=== PATIENT | female | born 1980 | race African-American/Black ===

== ENCOUNTER 2017-02-09 09:35 | Emergency (ER) | payer OTHER ==
[~2017-02-09] VITALS: Ht 165.1 cm; Wt 92.7 kg
[~2017-02-09 09:35] MED LIST: AMIT25TA9 PO; ERGO1TAB PO; HYDR-3965 PO
[2017-02-09] MEDS ORDERED: ONDANSETRON HCL 4 MG TABLET PO ONE (10:45)
[2017-02-09] MEDS ORDERED: HYDROCODONE/ACETAMINOPHEN 5-325 MG TABLET PO ONE (10:45)
[2017-02-09 12:05] VITALS: BP 129/79
== END 2017-02-09 12:12 | disposition home or self-care (01) ==
LOC: EMS 09:37
DX: M25.531 Pain in right wrist (principal); R03.0 Elevated blood-pressure reading, without diagnosis of hypertension; J06.9 Acute upper respiratory infection, unspecified
CPT/HCPCS: 29125; 73110; 99284; Q0162

== ENCOUNTER 2022-09-09 13:12 | Emergency (ER) | payer OTHER ==
[~2022-09-09] VITALS: Ht 160 cm; Wt 103.2 kg
[2022-09-09] MEDS ORDERED: METF-1211 PO (13:22)
[2022-09-09] MEDS ORDERED: CETI-193 PO (13:22)
[2022-09-09 13:30] LABS: COVID AG,FIA SOURCE NASAL SWAB
[2022-09-09 13:52] LABS: INFLUENZA TYPE A NEGATIVE FOR TYPE A (NEGATIVE); INFLUENZA TYPE B NEGATIVE FOR TYPE B (NEGATIVE)
[2022-09-09] MEDS ORDERED: DICL100G31 TP (14:26)
[2022-09-09] MEDS ORDERED: AMIT75TA2 PO (14:26)
[2022-09-09] MEDS ORDERED: NAPR-1025 PO (14:26)
[2022-09-09] MEDS ORDERED: ACETAMINOPHEN 500 MG TABLET PO ONE (14:30)
[2022-09-09] MEDS ORDERED: IBUPROFEN 600 MG TABLET PO ONE (14:30)
[2022-09-09] MEDS ORDERED: ACET-2080 PO (15:02)
[2022-09-09] MEDS ORDERED: IBUP-1554 PO (15:02)
[2022-09-09] MEDS ORDERED: AMOX1TAB16 PO (15:02)
[2022-09-09] MEDS ORDERED: ONDA-104 PO (15:02)
[2022-09-09 15:24] VITALS: BP 115/72
== END 2022-09-09 16:10 | disposition home or self-care (01) ==
LOC: EMS 13:15
DX: J32.9 Chronic sinusitis, unspecified (principal); R50.9 Fever, unspecified; F41.9 Anxiety disorder, unspecified; F32.A Depression, unspecified; E11.9 Type 2 diabetes mellitus without complications; G43.909 Migraine, unspecified, not intractable, without status migrainosus; Z87.891 Personal history of nicotine dependence; Z98.890 Other specified postprocedural states; Z20.822 Contact with and (suspected) exposure to COVID-19
CPT/HCPCS: 82962; 87804; 99283

== ENCOUNTER 2023-12-21 08:59 | Emergency (ER) | payer OTHER ==
[~2023-12-21] VITALS: Ht 160 cm; Wt 100.9 kg
[~2023-12-21 08:59] MED LIST changes: +ACET-2080 PO; -AMIT25TA9 PO; +AMIT75TA2 PO; +AMOX-457 PO; +CETI-193 PO; +DICL2100G TP; -ERGO1TAB PO; -HYDR-3965 PO; +IBUP-1554 PO; +METF-1211 PO; +NAPR-1025 PO; +ONDA-104 PO
[2023-12-21 12:09] VITALS: BP 135/94; PULSE 88; RESP 16; TEMP 97.9
[2023-12-21] MEDS ORDERED: IBUP-1492 PO (12:10)
[2023-12-21] MEDS: IBUPROFEN 600 MG TABLET PO ONE (12:13)
== END 2023-12-21 12:22 | disposition home or self-care (01) ==
LOC: EMS 09:08
DX: S93.402A Sprain of unspecified ligament of left ankle, initial encounter (principal); E11.9 Type 2 diabetes mellitus without complications; W10.8XXA Fall (on) (from) other stairs and steps, initial encounter; Y93.89 Activity, other specified; Y92.89 Other specified places as the place of occurrence of the external cause; Y99.8 Other external cause status
CPT/HCPCS: 29515; 99284

== ENCOUNTER 2024-09-23 09:51 | Emergency (ER) | payer OTHER ==
[~2024-09-23] VITALS: Ht 160 cm; Wt 93.6 kg
[~2024-09-23 09:51] MED LIST changes: +IBUP-1492 PO; -NAPR-1025 PO; +NAPR-1196 PO
[2024-09-23] MEDS ORDERED: AMLO10TA55 PO (10:00)
[2024-09-23] MEDS ORDERED: METF-444 PO (10:00)
[2024-09-23] MEDS ORDERED: FERR325T23 PO (10:00)
[2024-09-23] MEDS ORDERED: SEMA0.253 SQ (10:00)
[2024-09-23] MEDS ORDERED: CHOL200059 PO (10:00)
[2024-09-23] MEDS ORDERED: CETI10TA58 PO (10:00)
[2024-09-23] MEDS ORDERED: RIME75TA PO (10:00)
[2024-09-23] MEDS ORDERED: FREM225A IM (10:00)
[2024-09-23] MEDS ORDERED: LEVO50TA11 PO (10:00)
[2024-09-23] MEDS ORDERED: OMEP20CA12 PO (10:00)
[2024-09-23 10:26] LABS: GLUCOMETER DEV NAME(LOC) ER.7; GLUCOSE,POINT OF CARE 108 MG/DL (70-110)
[2024-09-23 10:27] LABS: BASOPHILS % (AUTO) 0.5 % (0.0-2.0); EOSINOPHILS % (AUTO) 4.6 % (1.0-6.0); HEMOGLOBIN 12.7 g/dL (12.0-16.0); LYMPHOCYTES # (AUTO) 1.3 K/uL (1.0-4.8); LYMPHOCYTES % (AUTO) 19.9 % (22.0-44.0); MEAN CORPUSCULAR HEMOGLOBIN 25.8 pg (26.0-34.0); MEAN CORPUSCULAR HGB CONC 32.6 G/dL (31.0-37.0); MEAN CORPUSCULAR VOLUME 79 fL (80-100); MONOCYTES # (AUTO) 0.4 K/uL (0.1-1.0); MONOCYTES % (AUTO) 6.1 % (2.0-9.0); NEUTROPHILS # (AUTO) 4.5 K/uL (1.8-7.7); NEUTROPHILS % (AUTO) 68.9 % (40.0-70.0); PLATELET COUNT (AUTO) 218 K/uL (150-450); RED BLOOD CELL COUNT(AUTO) 4.93 MIL/uL (4.00-5.20); WHITE BLOOD COUNT (AUTO) 6.5 K/uL (4.5-11.0)
[2024-09-23 10:37] LABS: ANION GAP 7 mmol/L (8-16); CALCIUM, TOTAL 8.8 mg/dL (8.8-10.5); CARBON DIOXIDE 27 mmol/L (22-29); CHLORIDE 99 mmol/L (98-107); CREATININE 0.75 mg/dL (0.60-1.30); GLOMERULAR FILTR. RATE CALC > 60 mL/min (>60); GLUCOSE,RANDOM 99 mg/dL (70-110); POTASSIUM 3.7 mmol/L (3.5-5.1); SODIUM SERUM 133 mmol/L (136-145); UREA NITROGEN, BLOOD 8 mg/dL (7-18)
[2024-09-23 10:44] LABS: ALBUMIN 3.7 g/dL (3.4-5.0); BILIRUBIN,DIRECT 0.1 mg/dL (0.00-0.20); BILIRUBIN,TOTAL 0.5 mg/dL (0.1-1.0); TOTAL PROTEIN, SERUM 7.9 g/dL (6.4-8.2)
[2024-09-23 11:25] LABS: INFLUENZA TYPE A NEGATIVE FOR TYPE A (NEGATIVE); INFLUENZA TYPE B NEGATIVE FOR TYPE B (NEGATIVE)
[2024-09-23 11:32] LABS: APPEARANCE,URINE CLEAR (CLEAR); BILIRUBIN,URINE NEGATIVE (NEGATIVE); COLOR,URINE COLORLESS (YELLOW); GLUCOSE, URINE (UA) NEGATIVE (NEGATIVE); KETONES,URINE NEGATIVE (NEGATIVE); LEUKOCYTE ESTERASE ,URINE NEGATIVE (NEGATIVE); NITRATE,URINE NEGATIVE (NEGATIVE); OCCULT BLOOD,URINE NEGATIVE (NEGATIVE); PROTEIN,URINE NEGATIVE (NEGATIVE); SPECIFIC GRAVITIY, URINE 1.008 (1.003-1.030); UROBILINOGEN,URINE <=1.0 mg/dL (<=1.0)
[2024-09-23] MEDS: ACETAMINOPHEN 500 MG TABLET PO ONE (11:36)
[2024-09-23] MEDS: PB/HYOSCY/ATR/SCOP/LIDO/MAALOX 55 ML BOTTLE PO ONE (11:37)
[2024-09-23 12:29] VITALS: BP 136/89; PULSE 84; RESP 18; TEMP 99.5; O2SAT 96
[2024-09-23] MEDS ORDERED: FAMO20 PO (12:30)
== END 2024-09-23 12:42 | disposition home or self-care (01) ==
LOC: EMS 09:54
DX: R10.13 Epigastric pain (principal); R19.7 Diarrhea, unspecified; E11.9 Type 2 diabetes mellitus without complications; Z91.013 Allergy to seafood; Z91.010 Allergy to peanuts; Z91.018 Allergy to other foods; Z79.84 Long term (current) use of oral hypoglycemic drugs; Z79.899 Other long term (current) drug therapy
CPT/HCPCS: 76700; 80048; 80076; 81003; 82962; 83690; 84703; 85025; 87804; 93005; 99284

== ENCOUNTER 2025-05-04 12:12 | Emergency (ER) | payer OTHER ==
[~2025-05-04] VITALS: Ht 160 cm; Wt 89.5 kg
[~2025-05-04 12:12] MED LIST changes: -ACET-2080 PO; -AMIT75TA2 PO; +AMIT75TA67 PO; +AMLO10TA55 PO; +CETI10TA58 PO; +CHOL200059 PO; +FAMO20 PO; +FERR325T23 PO; +FREM225A IM; +LEVO50TA11 PO; +METF-444 PO; +OMEP20CA12 PO; +RIME75TA PO; +SEMA0.253 SQ
[2025-05-04] MEDS ORDERED: FREM225A SQ (12:23)
[2025-05-04 12:25] VITALS: TEMP 98.6
[2025-05-04 13:12] LABS: APPEARANCE,URINE CLEAR (CLEAR); GLUCOSE, URINE (UA) NEGATIVE (NEGATIVE); LEUKOCYTE ESTERASE ,URINE NEGATIVE (NEGATIVE); NITRATE,URINE NEGATIVE (NEGATIVE); OCCULT BLOOD,URINE LARGE (NEGATIVE); SPECIFIC GRAVITIY, URINE 1.007 (1.003-1.030)
[2025-05-04 13:18] LABS: SQUAMOUS EPITHELIAL CELL,UR Few /LPF (None Seen)
[2025-05-04 15:20] LABS: PLATELET COUNT (AUTO) 270 K/uL (150-450); RED BLOOD CELL COUNT(AUTO) 5.26 MIL/uL (4.00-5.20); RED CELL DISTRIBUTION WIDTH 14.0 % (11.5-14.5); WHITE BLOOD COUNT (AUTO) 10.3 K/uL (4.5-11.0)
[2025-05-04 15:28] LABS: CALCIUM, TOTAL 9.6 mg/dL (8.8-10.5); CREATININE 0.85 mg/dL (0.60-1.30); GLOMERULAR FILTR. RATE CALC > 60 mL/min (>60); GLUCOSE,RANDOM 89 mg/dL (70-110); SODIUM SERUM 138 mmol/L (136-145); UREA NITROGEN, BLOOD 8 mg/dL (7-18)
[2025-05-04 15:39] LABS: TROPONIN I-HIGH SENSITIVITY Less Than 4 ng/L (<51)
[2025-05-04] MEDS: KETOROLAC TROMETHAMINE 30 MG/ML VIAL IM ONE (16:24)
[2025-05-04 17:25] VITALS: BP 137/84; PULSE 85; RESP 18; O2SAT 99
== END 2025-05-04 17:40 | disposition home or self-care (01) ==
LOC: EMS 12:12
DX: M94.0 Chondrocostal junction syndrome [Tietze] (principal); E11.9 Type 2 diabetes mellitus without complications; I10 Essential (primary) hypertension; F41.9 Anxiety disorder, unspecified; Z87.891 Personal history of nicotine dependence; Z98.890 Other specified postprocedural states; F32.A Depression, unspecified; G43.909 Migraine, unspecified, not intractable, without status migrainosus; Z86.018 Personal history of other benign neoplasm; Z91.010 Allergy to peanuts; Z91.0120 Allergy to eggs, unspecified; Z91.013 Allergy to seafood; Z79.899 Other long term (current) drug therapy
CPT/HCPCS: 99285; 71045; 80048; 81001; 83880; 84484; 85025; 36415; 93005; 96372; J1885